=== PATIENT | male | born 1955 | race Caucasian/White ===

== ENCOUNTER 2022-02-20 07:57 | Day surgery (SDC) | payer MEDICARE ==
[~2022-02-20] VITALS: Ht 177.8 cm; Wt 80.5 kg
[~2022-02-20 07:57] MED LIST: ATOR1TAB19; ECOT81TA5 PO; IBUP80TA; LISI20TA33; OXYC-517; TAMS1CAP17; ceFAZolin SOD 2 GM in IV 1 EA IV ONE
[2022-02-20] MEDS ORDERED: ISOVUE-300 61% 50ML VIAL As Ordered ONE (08:00)
[2022-02-20] MEDS ORDERED: LR 1,000 ML IV SCH ×2 (08:10→11:20)
[2022-02-20] MEDS ORDERED: VITMTA PO (08:20)
[2022-02-20] MEDS ORDERED: TAMS1CAP17 (08:20)
[2022-02-20] MEDS ORDERED: LIDOCAINE 2% 100MG/5ML SDV (FOR ANES.) As Ordered ONE (09:49)
[2022-02-20] MEDS ORDERED: propofoL 200 MG/20 ML VIAL As Ordered ONE (09:49)
[2022-02-20] MEDS ORDERED: ROCURONIUM BROMIDE 50 MG/5 ML VIAL As Ordered ONE (09:49)
[2022-02-20] MEDS ORDERED: ONDANSETRON 4MG 2ML VIAL As Ordered ONE (09:49)
[2022-02-20] MEDS ORDERED: SUGAMMADEX SODIUM 500 MG/5 ML VIAL (BRIDION) As Ordered ONE (09:49)
[2022-02-20] MEDS ORDERED: MIDAZOLAM INJ 2MG/2ML VIAL (J2250 PER 1MG) As Ordered ONE (09:50)
[2022-02-20] MEDS ORDERED: fentaNYL 100 MCG/2 ML INJECTION As Ordered ONE (09:51)
[2022-02-20] MEDS ORDERED: dexameTHASONE 4 MG/ML 1ML VIAL (J1100 PER 1MG) As Ordered ONE (10:45)
[2022-02-20] MEDS ORDERED: ACETAMINOPHEN 1000MG 100ML IV BTL (OFIRMEV) (J0131 PER 10MG) As Ordered ONE (11:07)
[2022-02-20] MEDS ORDERED: oxyCODONE 5MG TAB PO PRN (11:20)
[2022-02-20] MEDS ORDERED: fentaNYL 100 MCG/2 ML INJECTION IV PRN (11:20)
[2022-02-20] MEDS ORDERED: ONDANSETRON 4MG 2ML VIAL IV PRN (11:20)
[2022-02-20] MEDS ORDERED: PERCOCET 5MG/325MG TAB PO PRN (11:40)
[2022-02-20 12:00] VITALS: BP 162/88
[2022-02-26 17:07] LABS: CA Oxalate Dihy 20 % (.); Ca Ox Monohydrate 80 % (.); Size 3x3 mm (.)
== END 2022-02-20 12:30 | disposition home or self-care (01) ==
LOC: M SDC 07:57
PROVIDERS: ATTEND Urology
DX: N20.1 Calculus of ureter (principal); N28.89 Other specified disorders of kidney and ureter; I10 Essential (primary) hypertension; E78.5 Hyperlipidemia, unspecified; Z79.899 Other long term (current) drug therapy
CPT/HCPCS: 52356; 74420; 82365; C1769; C2617; J0131; J0690; J1100; J2250; J2405; J3010; Q9967

== ENCOUNTER 2022-03-06 11:39 | Inpatient (IN) | payer MEDICARE ==
[~2022-03-06] VITALS: Ht 177.8 cm; Wt 78.8 kg
[~2022-03-06 11:39] MED LIST changes: -ATOR1TAB19; +ATOR1TAB19 PO; -LISI20TA33; +LISI20TA33 PO; +VITMTA PO
[2022-03-06] MEDS: LR 1,000 ML IV SCH ×2 (12:35→12:36)
[2022-03-06] MEDS ORDERED: BUPIVACAINE HCL 0.25% 30ML VIAL As Ordered ONE (14:12)
[2022-03-06] MEDS ORDERED: LIDOCAINE 1% SDV 30ML VIAL As Ordered ONE (14:12)
[2022-03-06] MEDS ORDERED: propofoL 200 MG/20 ML VIAL As Ordered ONE (15:07)
[2022-03-06] MEDS ORDERED: LIDOCAINE 2% INJ 100 MG/5 ML SYRINGE As Ordered ONE (15:07)
[2022-03-06] MEDS ORDERED: ROCURONIUM BROMIDE 50 MG/5 ML VIAL As Ordered ONE ×3 (15:07→18:16)
[2022-03-06] MEDS ORDERED: fentaNYL 250 MCG/5 ML INJECTION As Ordered ONE (15:08)
[2022-03-06] MEDS ORDERED: MIDAZOLAM INJ 2MG/2ML VIAL (J2250 PER 1MG) As Ordered ONE (15:08)
[2022-03-06] MEDS ORDERED: PERCOCET 5MG/325MG TAB PO PRN (15:15)
[2022-03-06] MEDS ORDERED: ACETAMINOPHEN TAB 650MG DOSE (2X325MG) PO PRN (15:15)
[2022-03-06] MEDS ORDERED: ONDANSETRON 4MG 2ML VIAL IV PRN ×2 (15:15→19:10)
[2022-03-06] MEDS ORDERED: dexameTHASONE 4 MG/ML 1ML VIAL (J1100 PER 1MG) As Ordered ONE (15:37)
[2022-03-06] MEDS ORDERED: PHENYLephrine 500MCG 5ML (100MCG/ML) SYRINGE As Ordered ONE (15:49)
[2022-03-06] MEDS ORDERED: ePHEDrine SULFATE 25 MG/5 ML(5MG/ML) SYRINGE As Ordered ONE (16:28)
[2022-03-06] MEDS ORDERED: HYDROmorphone HCL 2MG/ML 1ML VIAL As Ordered ONE (16:44)
[2022-03-06] MEDS ORDERED: ACETAMINOPHEN 1000MG 100ML IV BTL (OFIRMEV) (J0131 PER 10MG) As Ordered ONE (17:21)
[2022-03-06] MEDS ORDERED: ONDANSETRON 4MG 2ML VIAL As Ordered ONE (17:21)
[2022-03-06] MEDS ORDERED: SUGAMMADEX SODIUM 500 MG/5 ML VIAL (BRIDION) As Ordered ONE (17:21)
[2022-03-06] MEDS ORDERED: oxyCODONE 5MG TAB PO PRN (19:10)
[2022-03-06] MEDS ORDERED: NS 1,000 ML IV SCH (19:10)
[2022-03-06] MEDS ORDERED: MEPERIDINE INJ 25 MG/ML VIAL (J2175) IV PRN (19:10)
[2022-03-06] MEDS ORDERED: fentaNYL 100 MCG/2 ML INJECTION IV PRN (19:10)
[2022-03-06] MEDS: NS 1,000 ML IV SCH ×2 (20:47→23:15)
[2022-03-06 20:51] LABS: HEMATOCRIT 37.3 % (42.0-52.0); HEMOGLOBIN 12.8 g/dl (13.5-17.5); MEAN CORPUSCULAR HEMOGLOBIN 31.4 pg (27.0-33.0); MEAN CORPUSCULAR HGB CONC 34.3 g/dl (32.0-36.5); MEAN CORPUSCULAR VOLUME 91.6 fl (80.0-96.0); PLATELET COUNT, AUTOMATED 235 10^3/uL (150-450); RED BLOOD COUNT 4.07 10^6/uL (4.30-6.10); WHITE BLOOD COUNT 11.6 10^3/uL (4.0-10.0)
[2022-03-06 20:59] VITALS: BP 158/62
[2022-03-06] MEDS: DOCUSATE SODIUM 100MG CAPSULE PO SCH (21:00)
[2022-03-06 21:02] LABS: CALCIUM LEVEL 8.8 MG/DL (8.8-10.2); CREATININE FOR GFR 1.34 MG/DL (0.70-1.30); POTASSIUM SERUM 4.1 MEQ/L (3.5-5.1)
[2022-03-06] MEDS: PERCOCET 5MG/325MG TAB PO PRN (23:47)
[2022-03-06] MEDS: ceFAZolin SOD 1 GM in D5W MINI-BAG PLUS 50 ML IV SCH (23:47)
[2022-03-07] VITALS (7 sets, daily range): BP systolic 146–192; BP diastolic 84–94
[2022-03-07] MEDS: NS 1,000 ML IV SCH (05:22)
[2022-03-07] MEDS: ceFAZolin SOD 1 GM in D5W MINI-BAG PLUS 50 ML IV SCH (05:59)
[2022-03-07 06:21] LABS: HEMATOCRIT 35.9 % (42.0-52.0); HEMOGLOBIN 12.5 g/dl (13.5-17.5); MEAN CORPUSCULAR HEMOGLOBIN 31.6 pg (27.0-33.0); MEAN CORPUSCULAR HGB CONC 34.8 g/dl (32.0-36.5); MEAN CORPUSCULAR VOLUME 90.7 fl (80.0-96.0); PLATELET COUNT, AUTOMATED 210 10^3/uL (150-450); RED BLOOD COUNT 3.96 10^6/uL (4.30-6.10); WHITE BLOOD COUNT 9.3 10^3/uL (4.0-10.0)
[2022-03-07 07:09] LABS: CALCIUM LEVEL 8.6 MG/DL (8.8-10.2); CREATININE FOR GFR 1.45 MG/DL (0.70-1.30); POTASSIUM SERUM 4.3 MEQ/L (3.5-5.1)
[2022-03-07] MEDS ORDERED: ATORVASTATIN 10 MG TAB PO SCH (09:00)
[2022-03-07] MEDS: DOCUSATE SODIUM 100MG CAPSULE PO SCH (09:20)
[2022-03-07] MEDS: PERCOCET 5MG/325MG TAB PO PRN (13:29)
[2022-03-07] MEDS ORDERED: VITMTA PO (14:37)
[2022-03-07] MEDS ORDERED: HOME MED LIST COMPLETE! XX SCH (14:40)
[2022-03-07] MEDS ORDERED: COLA100C5 PO (15:44)
[2022-03-07] MEDS ORDERED: PERCOCET PO (15:44)
== END 2022-03-07 17:50 | disposition home or self-care (01) | DRG 658 ==
LOC: M OR 11:39 → M MSPAV 20:40
PROVIDERS: ADMIT Urology; ATTEND Urology
PROC: 8E0W4CZ Robotic Assisted Procedure of Trunk Region, Percutaneous Endoscopic Approach (ICD-10-PCS; 2022-03-06)
PROC: 0TP98DZ Removal of Intraluminal Device from Ureter, Via Natural or Artificial Opening Endoscopic (ICD-10-PCS; 2022-03-06)
PROC: 0TT04ZZ Resection of Right Kidney, Percutaneous Endoscopic Approach (ICD-10-PCS; principal; 2022-03-06 13:30)
DX: C64.1 Malignant neoplasm of right kidney, except renal pelvis (principal); N20.0 Calculus of kidney; E78.5 Hyperlipidemia, unspecified; I10 Essential (primary) hypertension; Z79.899 Other long term (current) drug therapy; Z79.82 Long term (current) use of aspirin